=== PATIENT | female | born 1970 | race Caucasian/White ===

== ENCOUNTER 2019-11-06 15:21 | Outpatient (CLI) | payer SELFPAY ==
--- NOTE | 2019-11-06 | XR_ITS ---
WS: [id number] Upright AP knees and lateral LEFT knee. HISTORY: LEFT knee pain. Recent fall. Very mild narrowing of the medial joint compartments. No fracture identified. No joint effusion. Lucio lla is in normal position. XR/XR knee LT 1-2V [id number] IMPRESSION: No fracture identified. Mild medial compartment osteoarthritis.
--- NOTE | 2019-11-06 | XR_ITS ---
WS: [id number] Upright AP knees and lateral LEFT knee. HISTORY: LEFT knee pain. Recent fall. Very mild narrowing of the medial joint compartments. No fracture identified. No joint effusion. Lucio lla is in normal position. XR/[place] [id number] IMPRESSION: No fracture identified. Mild medial compartment osteoarthritis.
== END 2019-11-06 15:22 | disposition home or self-care (01) ==
LOC: RADOUTREAD 11-07 07:20
PROVIDERS: PCP Physician Assistant; Visit Provider Physician Assistant
DX: Z76.89 Persons encountering health services in other specified circumstances (principal)

== ENCOUNTER 2019-11-06 16:03 | Outpatient (CLI) | payer MEDICAID, SELFPAY ==
[2019-11-07 09:48] LABS: Basophils # 0.1 10^3/uL (0.0-0.1); Basophils % 0.7 %; Eosinophils # 0.2 10^3/uL (0.0-0.8); Eosinophils % 2.3 %; Hematocrit 37.6 % (37.0-47.0); Hemoglobin 11.9 g/dL (11.5-15.3); Lymphocytes # 2.3 10^3/uL (0.8-4.8); Lymphocytes % 28.2 %; Mean Corpuscular HGB Conc 31.6 g/dL (30.0-36.0); Mean Corpuscular Hemoglobin 29.5 pg (28.0-34.0); Mean Corpuscular Volume 93.3 fL (81-99); Mean Platelet Volume 10.7 fL (7.4-10.4); Monocytes # 0.7 10^3/uL (0.2-0.9); Monocytes % 8.4 %; Neutrophils # 4.9 10^3/uL (1.8-7.7); Nucleated Red Blood Cells % 0 %; Platelet Count 309 10^3/cmm (130-400); Red Blood Count 4.03 10^6/uL (4.1-5.3); Red Cell Distribution Width 12.1 % (12.1-15.1); White Blood Count 8.2 10^3/uL (4.0-10.0)
[2019-11-07 10:06] LABS: Estmated Average Glucose 131; Hemoglobin A1C 6.2 % (4.0-6.0)
[2019-11-07 10:08] LABS: Alanine Aminotransferase 29 U/L (0-33); Albumin Level 4.2 g/dL (3.5-5.2); Alkaline Phosphatase 100 IU/L (35-105); Anion Gap 14.4 (5-19); Aspartate Amino Transferase 26 U/L (0-32); Blood Urea Nitrogen 14 mg/dL (6-20); Carbon Dioxide 28 mmol/L (22-29); Chloride 101 mmol/L (98-107); Chol HDL Ratio 6.29 mg/dL (0.0-4.40); Cholesterol 264 mg/dL (0-200); Glomerular Filtration Rate 37.2 mL/min (90-130); Glucose 124 mg/dL (65-115); HDL Cholesterol 42 mg/dL (60-100); LDL Cholesterol Calculated 143 mg/dL (50-129); Potassium 4.4 mmol/L (3.5-5.1); Sodium 139 mmol/L (136-145); Total Bilirubin 0.3 mg/dL (0.15-1.2); Total Protein 7.2 g/dL (6.6-8.7); Triglycerides 395 mg/dL (0-150)
== END 2019-11-06 16:04 | disposition home or self-care (01) ==
LOC: LAB 16:10
PROVIDERS: PCP Physician Assistant; Visit Provider Physician Assistant
DX: E11.9 Type 2 diabetes mellitus without complications (principal); I10 Essential (primary) hypertension
CPT/HCPCS: 36415; 80053; 80061; 83036; 85025

== ENCOUNTER → 2019-12-10 10:33 | Outpatient (BNVA) | payer MEDICAID, SELFPAY | PROVIDERS: PCP Physician Assistant; Visit Provider Psychiatry & Neurology Psychiatry | DX: F33.0 Major depressive disorder, recurrent, mild (principal) | CPT/HCPCS: 99204 ==

== ENCOUNTER 2019-12-24 10:15 | Emergency (ER) | payer MEDICAID, SELFPAY ==
[2019-12-24 10:43] VITALS: BP 160/123; PULSE 121; RESP 18; TEMP 36.8; O2SAT 97; BMI 42.9
--- NOTE | 2019-12-24 11:10 | ED_ITS ---
HPI - URI/Sore Throat General: Chief Complaint: General Medical Stated Complaint: Runny nose/cough/sore throat Time Seen by Provider: 12/24/19 10:45 Source: patient Mode of arrival: ambulatory Limitations: no limitations History of Present Illness: HPI Narrative: Patient is a 49-year-old female who presents to ED today with complaints of a mild productive cough, runny nose, and sore throat. Symptoms just beginning last night. She has not been running fevers. She denies sick contacts. She denies recent travel. States she has had similar symptoms previously and that they always give me antibiotics . MD elicited complaint: cough, sore throat and rhinorrhea Onset (ago): hour(s) (reports just beginning last night ) Consistency: constant Severity: mild Description of mucous: clear Able to tolerate fluids by mouth: Yes Exacerbating factors: nothing Relieving factors: nothing Associated symptoms: Reports no associated symptoms; Deny abdominal pain, chills, chest pain, diarrhea, epistaxis, ear or mastoid pain, fever(s), headache(s), nasal congestion, nausea, sinus pain or vomiting Treatments prior to arrival: none Review of Systems General: Reports: 10 or more systems reviewed and unremarkable except in HPI and below Const: Denies: fever, chills, body aches, change in appetite, change in weight, fatigue or malaise Eyes: Denies: change in vision, blurry vision or photophobia ENMT: Reports: throat pain, painful swallowing and nasal discharge; Denies: enlarged tonsils, swelling of lips/tongue, oral sores/lesions, dental pain, ear pain, ear discharge, tinnitus, nasal congestion, nose bleeds or facial/sinus pain Card: Denies: chest pain, palpitations, irregular heart rhythm, edema, swell ing of feet/ankles, lightheadedness, syncope, pre-syncope or shortness of breath when lying down Resp: Reports: productive cough and chest congestion; Denies: shortness of breath, non-productive cough, pain on inspiration or coughing up blood GI: Denies: abdominal pain, nausea, vomiting or diarrhea Musc: Denies: neck pain or back pain Skin/Breast: Denies: rash Neuro: Denies: headache, numbness in extremities, weakness in extremities or changes in sensation PFS ED PFSH: Social History (Updated 12/10/19 @ 10:46 by HÉCTOR Mckoy Smoking and tobacco status: current every day smoker cigarettes Years cigarettes smoked: 35 Quit status (tobacco): has tried quititng Number of times tried to quit tobacco: 2 Second hand smoke exposure: No Smoking risk assessment/counseling performed?: Yes Current gender identity: Female Physical Exam Const: COMMON NORMALS: no apparent distress, oriented x3, no limitations and alert NUTRITIONAL APPEARANCE: obese HENMT: COMMON NORMALS: normocephalic, head/scalp atraumatic, hearing grossly normal bilaterally, external ears normal, EAC's normal, TM's normal bilaterally, external nose normal, nasal mucous membranes and turbinates normal, moist oral mucous membranes and oropharynx normal HEAD & SCALP: normal to inspection, normocephalic and atraumatic FACE & SINUS: normal facial exam and sinuses nontender NOSE: external nose normal and nasal mucous membranes and turbinates normal EXTERNAL EAR: Yes external ears normal EXTERNAL AUDITORY CANAL: EAC's normal TYMPANIC MEMBRANE: TM's normal bilaterally THROAT: posterior oropharynx normal, tonsils normal and uvula midline Eye: COMMON NORMALS: PERRL, EOMs intact bilaterally and conjunctivae normal CONJUNCTIVA: Yes conjunctivae normal PUPIL: Yes PERRL Neck/C-Spine: COMMON NORMALS: no lymphadenopathy Resp: COMMON NORMALS: normal respiratory effort and clear to auscultation bilaterally AUSCULTATION: clear to auscultation bilaterally Cardio: COMMON NORMALS: regular rate and regular rhythm RATE: regular rate RHYTHM: regular rhythm Neuro: COMMON NORMALS: oriented x3 SENSORIUM/ORIENTATION: Yes alert Skin: COMMON NORMALS: no rashes or lesions noted GENERAL SKIN EXAM: no rashes or lesions noted Course Vital Signs: Vital signs: Vital Signs Temperature 98.2 F 12/24/19 10:43 Pulse Rate 93 12/24/19 12:33 Respiratory Rate 14 12/24/19 12:33 Blood Pressure 155/90 12/24/19 12:33 Pulse Oximetry 98 12/24/19 12:33 MDM - URI/Sore Throat MDM Narrative: Medical decision making narrative: There is no need for antibiotics at this time as the vast majority of upper respiratory infections are viral in nature. Patient symptoms just began last night. Recommend OTC therapies for symptomatic relief. She can follow-up with PCP in 1 to 2 weeks for unresolving symptoms. Return to ED precautions given. Imaging Data^: CXR: Radiologist's impression: [facility] of [address] [address] XRay Report Signed Patient: Nat Hahn Unit #: [id number] : [id number] Age/Sex: 49 / F ADM Date: 12/24/19 Loc: ER Room/Bed: Attending Dr: Ordering Provider/Ordering MD: Riya Melissa Date of Service: 12/24/19 Procedure(s): XR chest 1V portable [id number] Accession Number(s): [id number] Report Number: [id number] WS: [id number] CHEST XRAY TECHNIQUE: Portable chest. CLINICAL INFORMATION: cough/congestion COMPARISON: None. FINDINGS: Right central venous catheter tip in proximal SVC. Heart: Normal cardiac silhouette. Lungs: Lungs are clear. No consolidation or pleural effusion. No acute pulmonary infiltrates. Bones: Normal visualized bony structures. XR/XR chest 1V portable [id number] IMPRESSION: 1. Right central venous catheter tip in the proximal SVC. 2. No acute pulmonary infiltrates. No focal pneumonia. Dictated By: Denys Mondragon MD Signed By: Denys Mondragon MD Signed Date/Time: 12/24/19 1150 DD/ 1149 Discharge Plan Discharge Patient Disposition: Home, Self-Care Clinical Impression: Viral URI with cough Condition: Stable Prescriptions: No Action gabapentin 300 mg capsule 300 mg PO TID RF: 0 metformin 500 mg tablet 500 mg PO BID RF: 0 trazodone 100 mg tablet 200 mg PO .HS Qty: 60 RF: 2 Discharge Orders: Discharge Order (Routine); Ordered 12/24/19 Ordered By: Riya Melissa Referrals: Ebony Amaya PA [Primary Care Provider] - Discharge Diet: Usual diet Discharge Activity: Increase activity as tolerated Patient Instructions: Upper Respiratory Infection - Adult, Viral Syndrome - Adult Discharge Date/Time: 12/24/19 12:34 Coding Level of Care Code ED [employer] Team Member for Myke Shelley
--- NOTE | 2019-12-24 11:10 | XR_ITS ---
WS: [id number] CHEST XRAY TECHNIQUE: Portable chest. CLINICAL INFORMATION: cough/congestion COMPARISON: None. FINDINGS: Right central venous catheter tip in proximal SVC. Heart: Normal cardiac silhouette. Lungs: Lungs are clear. No consolidation or pleural effusion. No acute pulmonary infiltrates. Bones: Normal visualized bony structures. XR/XR chest 1V portable [id number] IMPRESSION: 1. Right central venous catheter tip in the proximal SVC. 2. No acute pulmonary infiltrates. No focal pneumonia.
[2019-12-24 12:33] VITALS: BP 155/90; PULSE 93; RESP 14; O2SAT 98
== END 2019-12-24 12:34 | disposition home or self-care (01) ==
PROVIDERS: Emergency Provider Physician Assistant; PCP Physician Assistant
DX: J06.9 Acute upper respiratory infection, unspecified (principal); R05 Cough; F33.0 Major depressive disorder, recurrent, mild; F17.210 Nicotine dependence, cigarettes, uncomplicated
CPT/HCPCS: 12345; 71045; 99281; 99282